=== PATIENT | male | born 1945 | race Two or more races ===

== ENCOUNTER 2018-04-29 08:51 | Outpatient (CLI) | payer OTHER ==
[~2018-04-29 08:51] MED LIST: BENAZEPRIL HCL10 MG; LOPRESSOR HCT 11 TAB PO; LOTREL 5-10 MG1 CAP PO; NORVASC5 MG; PROSCAR5 MG; SYNTHROID50 MCG; TAMS0.4C; TOPROL XL100 M1; XALATAN
== END 2018-04-29 08:54 | disposition home or self-care (01) ==
LOC: SONOGRAMA 08:51
DX: R31.9 Hematuria, unspecified (principal)

== ENCOUNTER 2018-09-08 08:45 | Emergency (ER) | payer OTHER ==
[~2018-09-08] VITALS: Ht 167.6 cm; Wt 77.1 kg
== END 2018-09-08 13:16 | disposition home or self-care (01) ==
LOC: ER 08:45
DX: R19.7 Diarrhea, unspecified (principal)

== ENCOUNTER 2019-09-28 14:29 | Emergency (ER) | payer OTHER ==
[~2019-09-28] VITALS: Ht 182.9 cm; Wt 88.9 kg
[2019-09-28] MEDS ORDERED: SYNTHROID75 MCG (14:40)
[2019-09-28] MEDS ORDERED: ZYLOPRIM100 M1 (14:41)
[2019-09-28] MEDS ORDERED: MIRALAX17 GM (14:41)
[2019-09-28] MEDS ORDERED: LOTREL 10-20 M1 EACH (14:41)
== END 2019-09-28 17:34 | disposition home or self-care (01) ==
LOC: ER 14:29
DX: K57.30 Diverticulosis of large intestine without perforation or abscess without bleeding (principal); R10.31 Right lower quadrant pain

== ENCOUNTER 2019-11-01 16:27 | Emergency (ER) | payer OTHER ==
[~2019-11-01] VITALS: Ht 182.9 cm; Wt 88.9 kg
[~2019-11-01 16:27] MED LIST changes: +LOTREL 10-20 M1 EACH; +MIRALAX17 GM; +SYNTHROID75 MCG; +ZYLOPRIM100 M1
== END 2019-11-01 18:48 | disposition home or self-care (01) ==
LOC: ER 16:27
DX: R31.0 Gross hematuria (principal)

== ENCOUNTER 2019-12-10 16:37 | Emergency (ER) | payer OTHER ==
[~2019-12-10] VITALS: Ht 182.9 cm; Wt 88.5 kg
[2019-12-10] MEDS ORDERED: FINASTERIDE (17:20)
== END 2019-12-10 20:05 | disposition home or self-care (01) ==
LOC: ER 16:37
DX: R31.0 Gross hematuria (principal)

== ENCOUNTER → 2019-12-15 | Outpatient (CLI) | payer OTHER ==
[~2019-12-15] MED LIST changes: +FINASTERIDE
== END | disposition home or self-care (01) ==
LOC: TOM 09:45
DX: N40.0 Benign prostatic hyperplasia without lower urinary tract symptoms (principal); R97.20 Elevated prostate specific antigen [PSA]; N20.0 Calculus of kidney
CPT/HCPCS: 74178; Q9965

== ENCOUNTER → 2020-05-05 08:36 | Outpatient (CLI) | payer OTHER | END | disposition home or self-care (01) | LOC: LAB 08:36 | DX: N20.0 Calculus of kidney (principal); N40.0 Benign prostatic hyperplasia without lower urinary tract symptoms; R97.20 Elevated prostate specific antigen [PSA]; D64.89 Other specified anemias; N39.0 Urinary tract infection, site not specified; I10 Essential (primary) hypertension; E03.8 Other specified hypothyroidism; E11.8 Type 2 diabetes mellitus with unspecified complications; E55.9 Vitamin D deficiency, unspecified ==

== ENCOUNTER 2020-05-09 14:10 | Outpatient (CLI) | payer OTHER | END 2020-05-09 14:13 | disposition home or self-care (01) | LOC: RAD 14:10 | DX: I87.2 Venous insufficiency (chronic) (peripheral) (principal); L03.90 Cellulitis, unspecified; M19.171 Post-traumatic osteoarthritis, right ankle and foot ==

== ENCOUNTER 2020-05-15 11:07 | Outpatient (CLI) | payer OTHER | END 2020-05-15 11:20 | disposition home or self-care (01) | LOC: NUCLEAR 11:07 | DX: I89.1 Lymphangitis (principal); I87.2 Venous insufficiency (chronic) (peripheral) ==

== ENCOUNTER → 2020-05-16 09:36 | Outpatient (CLI) | payer OTHER | END | disposition home or self-care (01) | LOC: NUCLEAR 09:00 | DX: I89.1 Lymphangitis (principal); I87.2 Venous insufficiency (chronic) (peripheral); I73.9 Peripheral vascular disease, unspecified ==

== ENCOUNTER 2020-12-29 08:42 | Outpatient (CLI) | payer OTHER | END 2020-12-29 08:47 | disposition home or self-care (01) | LOC: LAB 08:42 | PROVIDERS: ATTEND Family Medicine Adult Medicine | DX: R05 Cough (principal); I11.9 Hypertensive heart disease without heart failure; R73.01 Impaired fasting glucose; N40.1 Benign prostatic hyperplasia with lower urinary tract symptoms; K90.41 Non-celiac gluten sensitivity; E55.9 Vitamin D deficiency, unspecified ==

== ENCOUNTER 2021-06-08 14:33 | Emergency (ER) | payer OTHER ==
[~2021-06-08] VITALS: Ht 182.9 cm; Wt 88.5 kg
== END 2021-06-08 20:51 | disposition home or self-care (01) ==
LOC: ER 14:33
DX: K40.90 Unilateral inguinal hernia, without obstruction or gangrene, not specified as recurrent (principal); N28.1 Cyst of kidney, acquired; N40.0 Benign prostatic hyperplasia without lower urinary tract symptoms; R10.31 Right lower quadrant pain

== ENCOUNTER 2021-08-17 09:11 | Outpatient (CLI) | payer OTHER | END 2021-08-17 09:43 | disposition home or self-care (01) | LOC: LAB 09:11 | DX: D64.89 Other specified anemias (principal); N39.0 Urinary tract infection, site not specified; I10 Essential (primary) hypertension; E78.89 Other lipoprotein metabolism disorders; E03.8 Other specified hypothyroidism; E11.8 Type 2 diabetes mellitus with unspecified complications ==

== ENCOUNTER 2021-12-04 10:07 | Outpatient (CLI) | payer OTHER | END 2021-12-04 10:15 | disposition home or self-care (01) | LOC: LAB 10:07 | PROVIDERS: ATTEND Ophthalmology | DX: H25.89 Other age-related cataract (principal); Z01.812 Encounter for preprocedural laboratory examination; D68.8 Other specified coagulation defects ==

== ENCOUNTER → 2022-04-10 | Emergency (ER) | payer OTHER ==
[~2022-04-10] VITALS: Ht 182.9 cm; Wt 86.2 kg
== END | disposition home or self-care (01) ==
LOC: ER 19:04
DX: R42 Dizziness and giddiness (principal); E11.9 Type 2 diabetes mellitus without complications; E03.9 Hypothyroidism, unspecified; I10 Essential (primary) hypertension; Z91.018 Allergy to other foods

== ENCOUNTER 2022-05-13 10:25 | Outpatient (CLI) | payer OTHER | END 2022-05-13 10:26 | disposition home or self-care (01) | LOC: LAB 10:25 | PROVIDERS: ATTEND Family Medicine Adult Medicine | DX: I11.9 Hypertensive heart disease without heart failure (principal); R73.01 Impaired fasting glucose; N40.1 Benign prostatic hyperplasia with lower urinary tract symptoms; E03.8 Other specified hypothyroidism; Z12.11 Encounter for screening for malignant neoplasm of colon ==

== ENCOUNTER 2022-06-23 14:03 | Inpatient (IN) | payer OTHER ==
[~2022-06-23] VITALS: Ht 182.9 cm; Wt 86.2 kg
[2022-06-23] MEDS ORDERED: PROSCAR5 MG PO (14:28)
--- NOTE | 2022-06-23 14:28 | NUR ---
SE RECIBE PTE ALERTA Y ORIENTADO X3,REFIERE TENER DOLOR ABDOMINAL,REFIERE TENR DOLOR EN YONATAN HERNIA INGUINAL LADO DERECHO.
--- NOTE | 2022-06-23 16:18 | NUR ---
PTE ALERTA,ESTABLE Y ORIENTADO.SE EDUCA SOBRE EL TRATAMIENTO QUE RECIBIRA EN [facility] REFIERE ENTENDER
== END 2022-06-28 17:23 | disposition home or self-care (01) | DRG 351 ==
LOC: ER 14:03 → SEC-K 22:19 → SURH 22:19
PROVIDERS: Surgery; ADMIT Internal Medicine; ATTEND Internal Medicine
PROC: BW2110Z Computerized Tomography (CT Scan) of Abdomen and Pelvis using Low Osmolar Contrast, Unenhanced and Enhanced (ICD-10-PCS; 2022-06-24)
PROC: B246ZZZ Ultrasonography of Right and Left Heart (ICD-10-PCS; 2022-06-25)
PROC: 0YU50JZ Supplement Right Inguinal Region with Synthetic Substitute, Open Approach (ICD-10-PCS; principal; 2022-06-25 21:30)
DX: K40.30 Unilateral inguinal hernia, with obstruction, without gangrene, not specified as recurrent (principal); K56.699 Other intestinal obstruction unspecified as to partial versus complete obstruction; I10 Essential (primary) hypertension

== ENCOUNTER 2022-12-06 09:21 | Outpatient (CLI) | payer OTHER ==
[~2022-12-06 09:21] MED LIST changes: +PROSCAR5 MG PO
== END 2022-12-06 09:39 | disposition home or self-care (01) ==
LOC: LAB 09:21
DX: D69.2 Other nonthrombocytopenic purpura (principal); I11.9 Hypertensive heart disease without heart failure; K57.93 Diverticulitis of intestine, part unspecified, without perforation or abscess with bleeding; R73.01 Impaired fasting glucose; Z12.11 Encounter for screening for malignant neoplasm of colon; N40.1 Benign prostatic hyperplasia with lower urinary tract symptoms; E03.8 Other specified hypothyroidism; E55.9 Vitamin D deficiency, unspecified

== ENCOUNTER 2023-06-05 07:44 | Outpatient (CLI) | payer OTHER | END 2023-06-05 07:47 | disposition home or self-care (01) | LOC: LAB 07:44 | DX: I11.9 Hypertensive heart disease without heart failure (principal); R73.01 Impaired fasting glucose; E03.8 Other specified hypothyroidism ==

== ENCOUNTER 2023-07-10 11:16 | Outpatient (CLI) | payer OTHER | END 2023-07-10 11:19 | disposition home or self-care (01) | LOC: LAB 11:16 | PROVIDERS: ATTEND Urology | DX: N40.0 Benign prostatic hyperplasia without lower urinary tract symptoms (principal); R97.20 Elevated prostate specific antigen [PSA]; N20.0 Calculus of kidney ==

== ENCOUNTER → 2023-12-09 08:48 | Outpatient (CLI) | payer OTHER ==
[2023-12-09 09:53] LABS: HEMATOCRIT 43.1 % (39.0-48.0); HEMOGLOBIN 14.8 g/dL (13-16.00); MEAN CELL VOLUME 87.7 fL (80.0-100.00); MEAN CORPUSCULAR HEMOGLOBIN 30.1 pg (27.00-32.0); MEAN CORPUSCULAR HGB CONC 34.3 g/dl (32.0-36.0); PLATELET COUNT 277 K/uL (150-450); RED BLOOD COUNT 4.91 M/uL (4.00-6.00); RED CELL DISTRIBUTION WIDTH 13.3 % (11.5-14.5)
[2023-12-09 10:39] LABS: BILIRUBIN TOTAL 0.5 mg/dL (0.3-1.2); CALCIUM 10.2 mg/dL (8.5-10.1); CHOL HDL RATIO 3.3 (0-5.0); CREATININE SERUM 1.09 mg/dL (0.70-1.30); GFR 65.09; GLOBULINA 3.3 G/DL (2.4-3.5); POTASSIUM 3.94 mEq/L (3.5-5.1); PROSTATIC SPECIFIC ANTIGEN 3.77 NG/ML (0.010-4.00); TOTAL PROTEIN 7.3 gm/dL (6.4-8.2); TSH 1.23 uIU/mL (0.358-3.74)
[2023-12-09 14:08] LABS: ob NEGATIVE (NEGATIVE)
== END | disposition home or self-care (01) ==
LOC: LAB 08:48
PROVIDERS: ATTEND Family Medicine Adult Medicine
DX: J20.0 Acute bronchitis due to Mycoplasma pneumoniae (principal); I11.9 Hypertensive heart disease without heart failure; R73.01 Impaired fasting glucose; Z12.11 Encounter for screening for malignant neoplasm of colon; N40.1 Benign prostatic hyperplasia with lower urinary tract symptoms; E03.9 Hypothyroidism, unspecified

== ENCOUNTER 2024-09-22 10:00 | Outpatient (CLI) | payer OTHER ==
[2024-09-22 12:23] LABS: ALBUMIN 4.2 gm/dL (3.4-5.0); CALCIUM 10.3 mg/dL (8.5-10.1); CREATININE SERUM 1.24 mg/dL (0.70-1.30); GFR 55.95; PHOSPHOROUS 2.9 mg/dL (2.5-4.9); POTASSIUM 4.58 mEq/L (3.5-5.1)
== END 2024-09-22 10:06 | disposition home or self-care (01) ==
LOC: LAB 10:00
PROVIDERS: ATTEND Family Medicine Adult Medicine
DX: I11.9 Hypertensive heart disease without heart failure (principal)

== ENCOUNTER 2024-12-23 09:14 | Outpatient (CLI) | payer OTHER ==
[2024-12-23 10:27] LABS: HEMATOCRIT 43.4 % (39.0-48.0); HEMOGLOBIN 14.6 g/dL (13-16.00); MEAN CELL VOLUME 89.2 fL (80.0-100.00); MEAN CORPUSCULAR HEMOGLOBIN 30.1 pg (27.00-32.0); MEAN CORPUSCULAR HGB CONC 33.7 g/dl (32.0-36.0); PLATELET COUNT 269 K/uL (150-450); RED BLOOD COUNT 4.86 M/uL (4.00-6.00); RED CELL DISTRIBUTION WIDTH 12.8 % (11.5-14.5)
[2024-12-23 11:09] LABS: CHOL HDL RATIO 3.1 (0-5.0)
[2024-12-23 11:12] LABS: ob NEGATIVE (NEGATIVE)
[2024-12-23 11:35] LABS: ALBUMIN 3.9 gm/dL (3.4-5.0); BILIRUBIN TOTAL 0.53 mg/dL (0.3-1.2); CREATININE SERUM 1.15 mg/dL (0.70-1.30); GFR 61.03; GLOBULINA 3.3 G/DL (2.4-3.5); POTASSIUM 4.34 mEq/L (3.5-5.1); PROSTATIC SPECIFIC ANTIGEN 4.01 NG/ML (0.010-4.00); TOTAL PROTEIN 7.2 gm/dL (6.4-8.2); TSH 1.96 uIU/mL (0.358-3.74)
== END 2024-12-23 09:15 | disposition home or self-care (01) ==
LOC: LAB 09:14
PROVIDERS: ATTEND Family Medicine Adult Medicine
DX: I11.9 Hypertensive heart disease without heart failure (principal); R73.03 Prediabetes; N40.1 Benign prostatic hyperplasia with lower urinary tract symptoms; Z12.11 Encounter for screening for malignant neoplasm of colon; E03.8 Other specified hypothyroidism

== ENCOUNTER → 2025-01-05 09:34 | Outpatient (CLI) | payer OTHER ==
[2025-01-05 10:19] LABS: PH,URINE 5.5 (5.0-8.0); URINE APPEARANCE Clear; URINE BILIRRUBIN Negative (NEGATIVE); URINE BLOOD NHT; URINE COLOR Yellow; URINE GLUCOSE Negative (NEGATIVE); URINE KETONE Negative (NEGATIVE); URINE LEUKOCYTE Trace; URINE NITRATE Negative; URINE PROTEIN Negative (NEGATIVE); URINE UROBILINOGEN 0.2 E.U./dl
[2025-01-05 10:24] LABS: URINE BACTERIA 35.4 uL (0.0-1933); URINE EPITHELIAL CELLS 2.3 uL (0.0-38.8); URINE RBC 17.5 uL (0.0-20.8); URINE WBC 16.5 uL (0.0-23.2)
[2025-01-05 10:36] LABS: CALCIUM 9.9 mg/dL (8.5-10.1); CREATININE SERUM 1.14 mg/dL (0.70-1.30); GFR 61.65; POTASSIUM 4.2 mEq/L (3.5-5.1)
[2025-01-05 10:37] LABS: URINE CAST 0.44 uL (0.0-1.40)
== END | disposition home or self-care (01) ==
LOC: LAB 09:34
PROVIDERS: ATTEND Internal Medicine Nephrology
DX: I12.9 Hypertensive chronic kidney disease with stage 1 through stage 4 chronic kidney disease, or unspecified chronic kidney disease (principal); N18.2 Chronic kidney disease, stage 2 (mild); R80.9 Proteinuria, unspecified

== ENCOUNTER 2025-03-21 11:09 | Outpatient (CLI) | payer OTHER | END 2025-03-21 11:12 | disposition home or self-care (01) | LOC: RAD 11:09 | PROVIDERS: ATTEND Internal Medicine Nephrology | DX: I12.9 Hypertensive chronic kidney disease with stage 1 through stage 4 chronic kidney disease, or unspecified chronic kidney disease (principal); N18.2 Chronic kidney disease, stage 2 (mild); R31.21 Asymptomatic microscopic hematuria; R80.9 Proteinuria, unspecified ==

== ENCOUNTER 2025-03-21 13:03 | Outpatient (CLI) | payer OTHER ==
[2025-03-21 14:26] LABS: PH,URINE 6.5 (5.0-8.0); URINE APPEARANCE Clear; URINE BILIRRUBIN Negative (NEGATIVE); URINE BLOOD Negative; URINE COLOR Yellow; URINE GLUCOSE Negative (NEGATIVE); URINE KETONE Negative (NEGATIVE); URINE LEUKOCYTE Negative; URINE NITRATE Negative; URINE PROTEIN Negative (NEGATIVE); URINE UROBILINOGEN 0.2 E.U./dl
[2025-03-21 14:31] LABS: URINE RBC 4.2 uL (0.0-20.8)
[2025-03-21 14:39] LABS: URINE BACTERIA 3.6 uL (0.0-1933); URINE WBC 0.3 uL (0.0-23.2)
[2025-03-21 15:13] LABS: CALCIUM 10.6 mg/dL (8.5-10.1); CREATININE SERUM 1.03 mg/dL (0.70-1.30); GFR 69.31; POTASSIUM 4.44 mEq/L (3.5-5.1)
== END 2025-03-21 13:04 | disposition home or self-care (01) ==
LOC: LAB 13:03
PROVIDERS: ATTEND Internal Medicine Nephrology
DX: I12.9 Hypertensive chronic kidney disease with stage 1 through stage 4 chronic kidney disease, or unspecified chronic kidney disease (principal); N18.2 Chronic kidney disease, stage 2 (mild); R80.9 Proteinuria, unspecified; R31.21 Asymptomatic microscopic hematuria

== ENCOUNTER → 2025-10-06 08:47 | Outpatient (CLI) | payer OTHER ==
[2025-10-06 10:12] LABS: URINE APPEARANCE Clear; URINE BILIRRUBIN Negative (NEGATIVE); URINE COLOR Yellow; URINE GLUCOSE Negative (NEGATIVE); URINE KETONE Negative (NEGATIVE); URINE LEUKOCYTE Trace; URINE NITRATE Negative; URINE PROTEIN Negative (NEGATIVE); URINE UROBILINOGEN 0.2 E.U./dl
[2025-10-06 10:17] LABS: URINE BACTERIA 10.8 uL (0.0-1933); URINE EPITHELIAL CELLS 2.9 uL (0.0-38.8); URINE RBC 10.9 uL (0.0-20.8); URINE WBC 2.6 uL (0.0-23.2)
[2025-10-06 10:25] LABS: URINE BLOOD TRACE; URINE CAST 0.58 uL (0.0-1.40)
[2025-10-06 10:56] LABS: BUN CREA RATIO 18.0 (7.0-25.0); CREATININE SERUM 1.09 mg/dL (0.70-1.30); GFR 64.76; GLUCOSE FASTING 128.0 mg/dL (65-100); OSMOLALITY SERUM 287.0 MOSM/KG (275-295)
== END | disposition home or self-care (01) ==
LOC: LAB 08:47
DX: R73.01 Impaired fasting glucose (principal); I11.9 Hypertensive heart disease without heart failure; I12.9 Hypertensive chronic kidney disease with stage 1 through stage 4 chronic kidney disease, or unspecified chronic kidney disease; N18.2 Chronic kidney disease, stage 2 (mild); R31.21 Asymptomatic microscopic hematuria; R80.9 Proteinuria, unspecified; E79.0 Hyperuricemia without signs of inflammatory arthritis and tophaceous disease; E83.52 Hypercalcemia